=== PATIENT | male | born 1995 | race Caucasian/White ===

== ENCOUNTER → 2016-09-11 | Outpatient (CLI) | payer OTHER ==
--- NOTE | 2016-09-11 17:55 | DI ---
LIMITED LEFT KNEE EXAM, 09/11/2016 12:40 PM: Clinical History: Bony injury. Previous Exam: None at this facility. AP and sunrise views are submitted because special instructions were written that the exam was to emp hasize views of the patella. There is no acute soft tissue, osseous, or joint abnormality. Although u nlikely, a subtle transverse fracture through the patella could be missed. Readin. Normal limited left knee exam. 2. If symptoms persist, a repeat study is recommended in addition consist of a complete AP, lateral, and sunrise views of the patella.
== END ==
LOC: MOB RAD 12:42
PROVIDERS: ATTEND Physician Assistant Medical
DX: M25.562 Pain in left knee (principal); M25.462 Effusion, left knee; S80.02XA Contusion of left knee, initial encounter; W55.12XA Struck by horse, initial encounter
CPT/HCPCS: 73560